=== PATIENT | female | born 1970 | race Caucasian/White ===

== ENCOUNTER 2022-08-09 10:43 | Outpatient (CLI) | payer BC, SELFPAY ==
[2022-08-09 12:23] LABS: Kit Draw Collected
== END 2022-08-09 10:44 | disposition home or self-care (01) ==
LOC: ANHGOSHLAB 10:45
PROVIDERS: PCP Family Medicine; Visit Provider Nurse Practitioner Family
DX: Z13.220 Encounter for screening for lipoid disorders (principal)
CPT/HCPCS: 36415

== ENCOUNTER 2022-08-30 02:09 | Day surgery (SDC) | payer BC, SELFPAY ==
[2022-08-16 15:10] VITALS: BMI 22.3
--- NOTE | 2022-08-30 09:30 | WPDANESEPPF ---
Anes - Initial Pre Proc Eval Procedure: Operation Date: 08/30/22 11:30 Proposed Procedures p Screening Colonoscopy - Jere Marcum MD Date/Time: 08/30/22 09:30 Surgeon: Jere Marcum MD Pre Op Diagnosis: neoplasm screening Patient Data Age: 52 Gender: F Height: 1.7 m Weight: 64.6 kg Allergies Allergy/AdvReac Type Severity Reaction Status Date / Time minocycline AdvReac Mild Other Verified 08/30/22 10:26 doxycycline AdvReac Unknown Other Verified 08/30/22 10:26 Home Medications Medication Instructions Recorded Confirmed Type Wayne's wort 300 mg capsule 300 mg PO TID 10/04/19 08/30/22 History methylcellulose (laxative) 500 mg 500 mg PO DAILY 03/22/22 08/30/22 History tablet (Fiber Therapy (methylcellulose)) vit C 250 mg-vit E 200 unit-zinc 1 cap PO DAILY 03/22/22 08/30/22 History ox 12.5 rk-tbdejn-cwkicn-zeax capsule (ICaps AREDS2) triamcinolone acetonide 0.1 % 1 applic topical BID #30 grams 08/02/22 08/30/22 Rx topical cream Patient hx anesthesia problems: none Family hx anesthesia problems: none Results Review: All pre-operative results and documents have been reviewed as part of the pre-operative evaluation. [facility] Past Medical History Medical History Bilateral ureteral reflux (~1983) Breast mass, right Chronic rhinitis Depressive disorder, not elsewhere classified Raynaud's syndrome without gangrene Surgical History Surgical History H/O breast augmentation (~2001) H/O tubal ligation (~2006) History of kidney donation History of nephrectomy (~2015) Hx of LASIK (~2011) Family History Family History Father Hypertension Mother Family history of heart disease in male family member before age 55 Other Depression Social History Social History Smoking status: Never smoker Alcohol intake: current Alcohol use details: occasional Substance use: never Substance use type: does not use Lack of Transportation: No Lack of Food: Never True Current Housing: I Have Housing Concerned About Future Housing: No Difficulty Paying Gas/Electric Bills: No Difficulty Paying for Meds: No Currently Unemployed: No Education: Bachelor's Degree Difficulty w/ Childcare or Family Care: No Living arrangements: with family Occupation/Education: occupation Gender identity (if verbalized by the patient): Female Spiritual care concerns: No Anes - Eval Final PreProcedure Day of Procedure 08/30/22 09:30 Patient weight: normal Heart: regular rate and rhythm Lungs: clear to auscultation and normal air movement Airway: Mallampati scale class II Neurological: alert and oriented Last oral intake: >/= 8 hours ASA classification: II Emergent: no Anesthetic plan: proceed Anesthesia type and monitoring: general GIVS Results Review: All pre-operative results and documents have been reviewed as part of the pre-operative evaluation. Informed Consent: The patient's anesthetic plan and its attendant risks and benefits were discussed with the patient/family/POA. Questions were solicited and answers provided to the satisfaction of the patient/family/POA.
[2022-08-30 10:28] VITALS: BP 128/80; PULSE 80; RESP 16; TEMP 36.5; O2SAT 100; BMI 21.7
[2022-08-30] MEDS: LACTATED RINGERS 1,000 ML 150 ML IV CONT (10:40)
--- NOTE | 2022-08-30 10:59 | PM.HPGS ---
History of Present Illness History of Present Illness Consent: Risks, benefits, and alternatives have been discussed and questions answered. Patient agrees to proceed with procedure. Chief complaint: neoplasm screening Narrative: Dyana Chinchilla is a 52 year old female Presents for screening colonoscopy. Patient reports that her father had colon polyps. Patient reports 10 years ago she had colonoscopy with benign polyps. Patient reports that her current weight appetite and bowel movements are normal. Patient denies abdominal pain. She has had no bleeding. Family history noncontributory. Review of Systems Review of Systems: Review of systems noncontributory. [facility] Past Medical History Medical History Bilateral ureteral reflux (~1983) Breast mass, right Chronic rhinitis Depressive disorder, not elsewhere classified Raynaud's syndrome without gangrene Surgical History Surgical History H/O breast augmentation (~2001) H/O tubal ligation (~2006) History of kidney donation History of nephrectomy (~2015) Hx of LASIK (~2011) Family History Family History Father Hypertension Mother Family history of heart disease in male family member before age 55 Other Depression Social History Social History Smoking status: Never smoker Alcohol intake: current Alcohol use details: occasional Substance use: never Substance use type: does not use Lack of Transportation: No Lack of Food: Never True Current Housing: I Have Housing Concerned About Future Housing: No Difficulty Paying Gas/Electric Bills: No Difficulty Paying for Meds: No Currently Unemployed: No Education: Bachelor's Degree Difficulty w/ Childcare or Family Care: No Living arrangements: with family Occupation/Education: occupation Gender identity (if verbalized by the patient): Female Spiritual care concerns: No Meds Home Medications and Allergies Home Medications Medication Instructions Recorded Confirmed Type Wayne's wort 300 mg capsule 300 mg PO TID 10/04/19 08/30/22 History methylcellulose (laxative) 500 mg 500 mg PO DAILY 03/22/22 08/30/22 History tablet (Fiber Therapy (methylcellulose)) vit C 250 mg-vit E 200 unit-zinc 1 cap PO DAILY 03/22/22 08/30/22 History ox 12.5 zc-zrxiyp-wwjrfn-zeax capsule (ICaps AREDS2) triamcinolone acetonide 0.1 % 1 applic topical BID #30 grams 08/02/22 08/30/22 Rx topical cream Allergies Allergy/AdvReac Type Severity Reaction Status Date / Time minocycline AdvReac Mild Other Verified 08/30/22 10:26 doxycycline AdvReac Unknown Other Verified 08/30/22 10:26 Vital Signs Vital Signs - 24 hr 08/30/22 10:28 Temperature 97.7 F Pulse Rate 80 Respiratory Rate 16 Blood Pressure 128/80 Pulse Oximetry 100 Oxygen Delivery Room Air Exam Narrative: Physical exam reveals patient be alert. Vital signs stable. HEENT exam is unremarkable. Patient is anicteric. Lungs are clear to auscultation and percussion. Heart is without murmur or extra sounds. Abdomen bowel sounds present soft nontender with no organomegaly. Digital external rectal exam normal. Assessment and Plan Assessment and plan (1) Family history of colonic polyps: Code(s): Z83.71 - Family history of colonic polyps Status: Acute Assessment and Plan: Patient's father has had colon polyps. For this reason screening colonoscopy advised now further recommendations may be given after endoscopy.
[2022-08-30 11:43] VITALS: BP 92/53; PULSE 73; RESP 17; O2SAT 100
[2022-08-30 11:53] VITALS: BP 112/77; PULSE 70; RESP 20; O2SAT 100
[2022-08-30 12:03] VITALS: BP 109/69; PULSE 66; RESP 18; O2SAT 100
== END 2022-08-30 12:08 | disposition home or self-care (01) ==
PROVIDERS: PCP Family Medicine; Visit Provider Internal Medicine Gastroenterology
PROC: 0DJD8ZZ Inspection of Lower Intestinal Tract, Via Natural or Artificial Opening Endoscopic (ICD-10-PCS; CPT 45378; principal; 2022-08-30 11:30)
DX: Z12.11 Encounter for screening for malignant neoplasm of colon (principal); K64.8 Other hemorrhoids; Z83.71 Family history of colonic polyps; Z90.5 Acquired absence of kidney
CPT/HCPCS: 45378; J2704; J7120

== ENCOUNTER 2022-11-22 15:46 | Outpatient (CLI) | payer BC, SELFPAY | END 2022-11-22 15:47 | disposition home or self-care (01) | LOC: ANHLAB 15:47 | PROVIDERS: PCP Family Medicine; Visit Provider Anesthesiology | DX: Z01.812 Encounter for preprocedural laboratory examination (principal); K43.2 Incisional hernia without obstruction or gangrene | CPT/HCPCS: 36415; 86850; 86900; 86901 ==

== ENCOUNTER → 2022-11-25 11:13 | Outpatient (CLI) | payer BC, SELFPAY ==
--- NOTE | ~2022-11-25 | MM_ITS ---
EXAMINATION: MM screening [facility] BI w ephraim HISTORY: Screening mammogram TECHNIQUE: Craniocaudal and mediolateral oblique 3-D tomosynthesis images were obtained and synthetic 2-D images were generated. CAD analysis was submitted and interpreted. COMPARISON: 01/04/2016, 06/25/2015, 11/13/2014 BREAST PARENCHYMAL COMPOSITION: The breasts are extremely dense, which lowers the sensitivity of mamm ography. FINDINGS: There is been interval explantation of the breast implants. RIGHT BREAST: No suspicious mass, calcification, or architectural distortion are identified to sugges t malignancy. There has been no suspicious interval change. LEFT BREAST: An asymmetry is present in the posterior third of the slightly inner breast 8.5 cm from the nipple on the craniocaudal view. IMPRESSION: 1. Left breast asymmetry on the craniocaudal view. 2. Additional mammographic views and possible breast ultrasound are recommended. BI-RADS Category 0: Incomplete: Needs additional imaging evaluation. Reviewed, dictated and finalized at location A. IMPRESSION: 1. Left breast asymmetry on the craniocaudal view. 2. Additional mammographic views and possible breast ultrasound are recommended . BI-RADS Category 0: Incomplete: Needs additional imaging evaluation.
== END ==
PROVIDERS: PCP Nurse Practitioner Family; Visit Provider Nurse Practitioner Family
DX: Z12.31 Encounter for screening mammogram for malignant neoplasm of breast (principal); R92.8 Other abnormal and inconclusive findings on diagnostic imaging of breast
CPT/HCPCS: 77063; 77067

== ENCOUNTER 2022-12-01 14:32 | Inpatient (IN) | payer BC, SELFPAY ==
[2022-11-21 14:24] VITALS: BMI 21.4
--- NOTE | 2022-11-21 14:50 | PC.NURSE ---
Report to the Outpatient Waiting Room, entrance under the green pavilion located off [facility], at time _1030 on date 11/30/22_. Planned Procedure Time: 1230_. Time changes happen often and if your time is changed the preop area will call you the afternoon before. - You and your visitor will be asked to self-screen and do not enter if you have any COVID symptoms. - A mask is optional within the hospital at this time. Patients may have clear liquids (water, carbonated beverages, clear teas, apple juice) until 3 hours prior to surgery with a maximum of 20 ounces. - No food from midnight until time of surgery - Infants may have breast milk until 4 hours before surgery, formula 6 hours prior to surgery. - Children will be allowed to drink immediately following surgery. If applicable, please bring a bottle or sippy cup to assist with drinking. Juice, water, soda, and popsicles are readily available. For infants on formula, please bring formula the day of surgery. Pacifiers are allowed. Take the following medications with a SIP of water the morning of surgery: _n/a DO NOT STOP ANY OF YOUR OTHER PRESCRIPTION MEDICATIONS PRIOR TO SURGERY ?EXCEPT THE FOLLOWING Medications to discontinue per physician _[place] wort, vitamin Date to take last dose_11/27/22_ Please no make-up, nail georgian, hairspray, perfume, deodorant, or body powder the day of surgery. No jewelry (including any body piercings) or valuables the day of surgery, leave them at home. Please take a shower or bath the night before, or the morning of, surgery with an antibacterial soap(hibiclens soap). Wear comfortable, loose fitting clothing. Children are encouraged to wear pajamas. - Jewelry must be removed prior to entering the operating room. Rings and piercings that are not removed may be cut off. - The hospital will not accept responsibility for valuables. - Please leave all valuables, including medications, at home the day of surgery. If you are going home after surgery, a licensed [employer] company truck driver must drive you home. - NO public transportation without another adult if you receive anesthesia. - We recommend that an adult stay with you for 24 hours following discharge. - We also recommend that you do not drive, make important decision, drink alcoholic beverages, or take any drugs that were not prescribed by your health care provider for at least 24 hours after your discharge time. For Pediatric surgeries, we recommend two adults accompany the child home. Follow any additional instructions given to you from your surgeon. If you or anyone in your household have experienced Covid symptoms in the past week, please notify your surgeon or the nurse liaison at the phone number below for possible testing. Telephone instructions given to Dyana Forteand asked if any additional questions and then verbalized understanding. Patient advised to call surgeon office or pre surgery nurse liaison [phone] if any additional questions.
[2022-11-30] VITALS (11 sets, daily range): BP systolic 93–124; BP diastolic 59–73; PULSE 50–89; RESP 12–18; TEMP 36.2–37.1; O2SAT 95–100
--- NOTE | 2022-11-30 12:11 | WPDHPUPDATE1 ---
History and Physical Update Update Date/Time: 11/30/22 12:11 History and Physical has been reviewed, including an updated exam of the patient. There are NO changes in the patient's condition. Risks, benefits, and alternatives have been discussed and questions answered. Patient agrees to proceed with procedure.
[2022-11-30] MEDS: LACTATED RINGERS 1,000 ML 30 ML IV CONT ×2 (12:30→15:54)
--- NOTE | 2022-11-30 12:37 | WPDANESEPPF ---
Anes - Initial Pre Proc Eval Procedure: Operation Date: 11/30/22 12:30 Proposed Procedures p Robotic Repair Incisional Hernia Repair - Barney Aldana MD Date/Time: 11/30/22 12:37 Surgeon: Barney Aldana MD Pre Op Diagnosis: incisional Hernia Patient Data Age: 52 Gender: F Height: 1.73 m Weight: 63.4 kg Last Vital Signs Temp 36.2 C L 11/30/22 10:46 Pulse 89 11/30/22 10:46 Resp 18 11/30/22 10:46 BP 124/71 11/30/22 10:46 Pulse Ox 100 11/30/22 10:46 O2 Del Method Room Air 11/30/22 10:46 Allergies Allergy/AdvReac Type Severity Reaction Status Date / Time minocycline AdvReac Mild Other Verified 11/30/22 11:40 doxycycline AdvReac Unknown Other Verified 11/30/22 11:40 Home Medications Medication Instructions Recorded Confirmed Type Wayne's wort 300 mg capsule 300 mg PO TID 10/04/19 11/30/22 History methylcellulose (laxative) 500 mg 500 mg PO DAILY 03/22/22 11/30/22 History tablet (Fiber Therapy (methylcellulose)) vit C 250 mg-vit E 200 unit-zinc 1 cap PO DAILY 03/22/22 11/30/22 History ox 12.5 bc-hibhib-oocpch-zeax capsule (ICaps AREDS2) triamcinolone acetonide 0.1 % 1 applic topical BID #30 grams 08/02/22 11/30/22 Rx topical cream estradiol-norethindrone acet 0.5 1 tablet PO DAILY #28 tabs 10/19/22 11/30/22 Rx mg-0.1 mg tablet (Amabelz) Patient hx anesthesia problems: none Family hx anesthesia problems: none Results Review: All pre-operative results and documents have been reviewed as part of the pre-operative evaluation. [facility] Past Medical History Medical History Bilateral ureteral reflux (~1983) Breast mass, right Chronic rhinitis Depressive disorder, not elsewhere classified Raynaud's syndrome without gangrene Surgical History Surgical History H/O breast augmentation (~2001) H/O breast surgery implants removed 08/12/2022 H/O tubal ligation (~2006) H/O ureter repair History of kidney donation History of nephrectomy (~2015) Hx of LASIK (~2011) Family History Family History Father Hypertension Mother Family history of heart disease in male family member before age 55 Unknown COPD (chronic obstructive pulmonary disease) Depression Social History Social History Smoking status: Never smoker Alcohol intake: current Alcohol use details: occasional Substance use: never Substance use type: does not use Lack of Transportation: No Lack of Food: Never True Current Housing: I Have Housing Concerned About Future Housing: No Difficulty Paying Gas/Electric Bills: No Difficulty Paying for Meds: No Currently Unemployed: No Education: Bachelor's Degree Difficulty w/ Childcare or Family Care: No Living arrangements: with family Occupation/Education: unemployed Gender identity (if verbalized by the patient): Female Sexual Orientation (if Verbalized by the Patient): Straight or Heterosexual Spiritual care concerns: No Anes - Eval Final PreProcedure Day of Procedure 11/30/22 12:37 Patient weight: normal Heart: regular rate and rhythm Lungs: clear to auscultation Airway: Mallampati scale class 1 Neurological: alert and oriented Last oral intake: >/= 8 hours ASA classification: III Emergent: no Anesthetic plan: proceed Anesthesia type and monitoring: general ETT and standard monitoring Results Review: All pre-operative results and documents have been reviewed as part of the pre-operative evaluation. Informed Consent: The patient's anesthetic plan and its attendant risks and benefits were discussed with the patient/family/POA. Questions were solicited and answers provided to the satisfaction of the patient/family/POA.
[2022-11-30] MEDS: ceFAZolin 2 GM/D5W 50 ML 2 GM/50 ML BAG IVPB (13:05)
--- NOTE | 2022-11-30 14:20 | SUR.OPER ---
OPEN PROCEDURE AT 0848
[2022-11-30] MEDS: LIDO 1%/EPINEPHRINE 1:100,000 20 ML VIAL 30 ML INFILTRATE (14:41)
--- NOTE | 2022-11-30 16:05 | W.PM.PROC2 ---
Procedure Note - Detailed Date of Procedure 11/30/22 Pre-op Diagnosis incisional Hernia with 1.5 cm defect Post-op Diagnosis Other (Incisional hernia with 8 cm defect) Procedure Performed Attempted robotic laparoscopic incisional hernia repair, open 8 cm incisional hernia repair with mesh, bilateral myofascial flap advancement 4 cm on the left, 3 cm on the right. Surgeon Barney Aldana MD Finishing Supervisor Gildardo FINCH, Gege FINCH Anesthesia General and Local (0.5% Marcaine with epinephrine) Indications Patient was a kidney donor in 2016. She had a midline incision associated with the nephrectomy. She noticed bulging in this area just above the umbilicus. She was seen in the office and found to have a supraumbilical incisional hernia judged to be about a 1.5 cm defect. She is taken to surgery now for laparoscopic robotic incisional hernia repair with mesh. Findings At robotic laparoscopy it was noted that the entire old incision was involved in the hernia. The rectus muscles were and the overall defect measured 8 x 5 cm. Robotic repair was abandoned and open repair with retro rectus mesh placement was performed. Description of Procedure Patient was taken to surgery and induced into general anesthesia. The abdomen was prepped and draped. Robotic trocars were planned for the lateral left side of the abdomen. Local anesthesia was infiltrated prior to placement of each of the trocars. A left subcostal incision was made 1st. The varies needle was introduced. CO2 was insufflated to adequate distension. A 5 mm applied Medical optical trocar was then placed. Under direct visualization, an 8 mm robotic trocar was placed in the lateral left mid abdomen. Similarly another 8 mm robotic trocar was placed in the left lower quadrant. We moved the camera and exchanged the 5 mm port for an 8 mm robotic port. The robot was brought into the field. The camera was docked. The 2 instrument arms were docked and instruments placed. The surgeon scrubbed out and went to the robotic console. There were a few anterior abdominal wall adhesions which were taken down with the scissors or cautery. The hernia defect was found. Instead of a small circular defect of 1.5 cm in diameter, the entire old nephrectomy incision was herniated. I dissected some of the peritoneum in this area to delineate the anatomy a little better and see if robotic closure with underlay mesh would be satisfactory. With the length of the hernia defect of 8 cm and the width of 5 cm, I felt this would be unsatisfactory and likely would result in recurrence. The robotic instruments and trocars were then removed. Instruments for open incisional hernia repair were brought into the field. Once we were set up for an open repair, I infiltrated additional local in the area of the previous midline scar. Incision was made in the area of the previous scar. Dissecting through the skin and some subcutaneous we then were in the peritoneal cavity as the previous dissection had removed some of the hernia sac. I palpated the edges of the hernia defect and confirmed the impression from the laparoscopy. I then enlarged the incision both cephalad and caudally such that the hernia defect was exposed at the skin and subcutaneous level. I started on the patient's left side. The posterior rectus fascia was exposed and I divided the posterior rectus fascia down to the rectus muscle medially. I then carefully dissected the posterior rectus fascia from the rectus muscle in this area as well as above and below the initial opening. The fascia easily from the rectus muscle. I dissected all the way to the lateral most extent of the rectus muscle. I then continued the dissection cephalad dividing the posterior rectus sheath on the patient's left side to a position at least 6-7 cm above the upper margin of the hernia defect. Similarly, I exposed the caudal into the incision and divided the posterior rectus f
[2022-11-30] MEDS: HYDROmorphone HCL INJ (*CRX) 1 MG/ML SYR 0.5 MG IV PUSH ×6 (16:16→17:10)
--- NOTE | 2022-11-30 17:47 | ADMGEN ---
This patient, Dyana Chinchilla, was admitted to 3 [facility] Surg Room 326-01. Report received from OLEG Rockwell. Patient/family oriented to hospital policies and general routines including ID bracelet, bed and alarms, visiting hours, pain management, procedures, bathroom and other care routines, personal items, smoking policy, room service/diet, and visiting hours. Information on how to activate the Rapid Response Team has been discussed. Patient/Family are encouraged to report perceived risks to care and to ask questions if they do not understand what they are told or what they should do.
[2022-11-30] MEDS: IBUPROFEN IV 800 MG/200 ML 800 MG/200 ML BAG 400 MG IVPB ×2 (18:02→23:32)
[2022-11-30] MEDS: diazePAM (*CRX) 5 MG TABLET PO (18:03)
[2022-11-30] MEDS: SCOPOLAMINE 1.5 MG PATCH TRANSDERM (18:07)
[2022-11-30] MEDS: LACTATED RINGERS 1,000 ML 100 ML IV CONT (18:07)
[2022-11-30] MEDS: FAMOTIDINE 20 MG/2 ML VIAL IV PUSH (21:39)
[2022-11-30] MEDS: SENNA/DOCUSATE SODIUM TABLET 2 TAB PO (21:39)
--- NOTE | ~2022-12-01 | XR_ITS ---
EXAMINATION: XR abdomen obstructive series DATE: 12/03/2022 10:28 INDICATION: Vomiting. Postop. TECHNIQUE: Upright and supine views of the abdomen were obtained. COMPARISON: None. FINDINGS: There are no dilated loops of bowel. There is a moderate volume of stool in the colon. A campoverde rgical drain overlies the left abdomen. No free intraperitoneal gas. IMPRESSION: 1. Nonobstructive bowel gas pattern. Reviewed, dictated and finalized at location A.
[2022-12-01 03:04] VITALS: BP 98/51; PULSE 54; RESP 16; TEMP 36.2; O2SAT 99
[2022-12-01] MEDS: LACTATED RINGERS 1,000 ML 100 ML IV CONT (03:57)
[2022-12-01] MEDS: IBUPROFEN IV 800 MG/200 ML 800 MG/200 ML BAG 400 MG IVPB ×2 (06:27→11:37)
[2022-12-01 06:29] LABS: Hematocrit 31.4 % (37.0-47.0); Hemoglobin 9.9 g/dL (12.0-15.0); Immature Platelet Fraction Pct 5.2 % (0.9-11.2); Mean Corpuscular HGB Conc 31.5 g/dl (32-36); Mean Corpuscular Hemoglobin 30.2 pg (26-34); Mean Corpuscular Volume 95.7 fl (80-100); Mean Platelet Volume 11.2 fl (7.4-10.4); Platelet Count Result 138 k/mm3 (150-375); Red Blood Count 3.28 M/mm3 (4.2-5.4); Red Cell Distribution Width 13.2 % (11.5-14.5); White Blood Count 10.7 K/mm3 (4.5-10.0)
[2022-12-01 06:47] LABS: Anion Gap 2 mmol/L (8-16); Blood Urea Nitrogen 14 mg/dL (7-17); Calcium 8.1 mg/dL (8.4-10.2); Carbon Dioxide 27 mmol/L (22-30); Chloride 102 mmol/L (98-107); Estimated CRCL calculation 60 ml/min; Estimated Glomerular Filt Rate 59; Glucose 106 mg/dL (65-110); Sodium 131 mmol/L (137-145)
[2022-12-01 07:30] VITALS: BP 91/66; PULSE 70; RESP 16; TEMP 36.4; O2SAT 100
[2022-12-01 08:00] VITALS: PULSE 69; O2SAT 99
[2022-12-01] MEDS: FAMOTIDINE 20 MG/2 ML VIAL IV PUSH (09:16)
[2022-12-01] MEDS: diazePAM (*CRX) 5 MG TABLET PO ×2 (09:16→17:27)
[2022-12-01] MEDS: polyethylene glycoL 3350 17 GM POWD.PACK PO (09:17)
[2022-12-01] MEDS: ENOXAPARIN 40 MG/0.4 ML SYRINGE SUB-Q (09:17)
[2022-12-01] MEDS: ACETAMINOPHEN 500 MG TABLET PO ×2 (09:20→17:30)
[2022-12-01 11:04] VITALS: BP 110/60; PULSE 72; RESP 16; TEMP 36.6; O2SAT 100
--- NOTE | 2022-12-01 11:30 | WPDANESPN ---
Anes - Prog Note Post-Op Date/Time: 12/01/22 11:30 Cardiovascular status: normal Respiratory status: normal Airway patency: baseline Mental status: baseline Post-Op hydration status: normal Vital Signs: Last Vital Signs Temp 97.9 F 12/01/22 11:04 Pulse 72 12/01/22 11:04 Resp 16 12/01/22 11:04 BP 110/60 12/01/22 11:04 Pulse Ox 100 12/01/22 11:04 O2 Del Method Room Air 11/30/22 21:29 O2 Flow Rate 8 11/30/22 16:20 Pain Score (VAS): 4 I/O: Intake & Output 11/30/22 12/01/22 12/01/22 23:59 07:59 15:59 Intake Total 500 2100 360 Output Total 100 25 Balance 400 2075 360 Laboratory Tests 12/01/22 06:03 12/01/22 06:03 12/01/22 06:03 WBC 10.7 H RBC 3.28 L Hgb 9.9 L Hct 31.4 L MCV 95.7 MCH 30.2 MCHC 31.5 L RDW 13.2 Plt Count 138 L MPV 11.2 H % Immature Plt Fraction 5.2 Sodium 131 L Potassium 4.0 Chloride 102 Carbon Dioxide 27 Anion Gap 2 L BUN 14 Creatinine 1.00 Estim Creat Clear Calc 60 Estimated GFR 59 Glucose 106 Calcium 8.1 L Post-procedural complaints: none Patient Feedback: Patient satisfied with anesthetic care.
[2022-12-01 15:04] VITALS: BP 105/55; PULSE 83; RESP 18; TEMP 37; O2SAT 100
--- NOTE | 2022-12-01 17:43 | PM.PNGS ---
Progress Note: A&P Assessment and Plan (1) Incisional hernia without mention of obstruction or gangrene: Qualifiers: Obstruction and gangrene presence: without obstruction or gangrene Qualified Code(s): K43.2 - Incisional hernia without obstruction or gangrene Code(s): K43.2 - Incisional hernia without obstruction or gangrene Status: Chronic Assessment and Plan: Doing well after retro rectus mesh repair yesterday. Has been up walking. Is been taking only IV ibuprofen for pain or Tylenol. Serosanguineous fluid per VALDEZ drain. Tolerating low-fiber diet well. Will change to oral analgesics. DC the Valium. She is doing very nicely. Recheck labs and exam tomorrow. Possibly home tomorrow if continues to improve. (2) History of kidney donation: Code(s): Z90.5 - Acquired absence of kidney Status: Chronic Assessment and Plan: Watch creatinine. Avoid NSAIDs other than occasional. Subjective Subjective Date/Time Seen: 12/01/22 17:43 Post Op day: 1 Patient reports: feels better, pain is less, tolerating a regular diet, no bowel movement and afebrile Exam Const: General: comfortable and no acute distress Orientation/consciousness: patient oriented x3 GI: Inspection: non-distended, incision (Dry and healing well), scaphoid and other (Serosanguineous fluid in VALDEZ drain) GI Palp: Yes Firmness to palpation present (GI), Yes Tenderness to palpation present (GI), No Guarding due to palpation present (GI) and No Rebound tenderness present Neuro: General: patient oriented x3 and no focal motor deficits Extrem: General: no calf tenderness and no edema Psych: Affect: normal affect Insight: Good insight present (Psych) Judgement: Good judgement present (Psych) Objective Data Vital Signs Vital Signs: Vital Signs - 24 hr 11/30/22 18:04 11/30/22 19:04 11/30/22 21:29 Temperature 36.9 C 37.1 C Pulse Rate 71 80 Respiratory Rate 16 18 Blood Pressure 113/59 L 111/60 Pulse Oximetry 100 98 98 Oxygen Delivery Room Air 11/30/22 23:04 12/01/22 03:04 12/01/22 07:30 Temperature 36.7 C 36.2 C L 36.4 C L Pulse Rate 74 54 L 70 Respiratory Rate 18 16 16 Blood Pressure 103/72 98/51 L 91/66 L Pulse Oximetry 100 99 100 Oxygen Delivery 12/01/22 11:04 12/01/22 08:00 12/01/22 15:04 Temperature 36.6 C 37.0 C Pulse Rate 72 69 83 Respiratory Rate 16 18 Blood Pressure 110/60 105/55 L Pulse Oximetry 100 99 100 Oxygen Delivery Room Air Intake/Output Intake/Output: Intake & Output 11/28/22 11/29/22 11/30/22 12/01/22 23:59 23:59 23:59 23:59 Intake Total 550 2860 Output Total 100 25 Balance 450 2835 Meds/Results Medications: Active Medications Generic Name Dose Route Start Last Admin Trade Name Freq PRN Reason Stop Dose Admin Acetaminophen 500 mg 11/30/22 17:19 12/01/22 17:30 Acetaminophen 500 Mg Tablet PO 500 mg Q6H PRN Administration Mild Pain (1-3) or Fever Hydrocodone Bitart/Acetaminophen 1 tab 12/01/22 17:40 Hydrocodone/Acetaminophen (*Crx) 5-325 Mg Tablet PO Q4H PRN Pain Rated 4-6 Enoxaparin Sodium 40 mg 12/01/22 09:00 12/01/22 09:17 Enoxaparin 40 Mg/0.4 Ml Syringe SUB-Q 40 mg DAILY ROSANNE Administration Ibuprofen 800 mg in 200 mls @ 400 mls/hr 12/01/22 17:40 Caldolor 800 Mg/200 Ml IVPB Q6H PRN Pain Rated 1-3 Miscellaneous Information 1 each 12/01/22 00:01 12/01/22 17:29 Med Rec Order Clarification XX 12/31/22 00:00 Not Given [facility] Morphine Sulfate 2 mg 11/30/22 17:19 Morphine Sulfate (*Crx) 2 Mg/Ml Inj IV PUSH Q2H PRN Pain Rated 4-6 Morphine Sulfate 4 mg 11/30/22 17:19 Morphine Sulfate (*Crx) 4 Mg/Ml Inj IV PUSH Q2H PRN Pain Rated 7-10 Naloxone HCl 0.1 mg 11/30/22 17:19 Naloxone Hcl 0.4 Mg/Ml Vial IV PUSH Q2M PRN Opiate Reversal Non-Formulary Medication 1 tablet 12/01/22 09:00 Estradiol-Norethindrone Acet [[place]
[2022-12-01 20:33] VITALS: BP 112/65; PULSE 71; RESP 16; TEMP 36.1; O2SAT 100
[2022-12-01] MEDS: SENNA/DOCUSATE SODIUM TABLET 2 TAB PO (20:55)
[2022-12-01] MEDS: HYDROcodone/acetaminophen (*CRX) 5-325 MG TABLET 1 TAB PO (20:55)
[2022-12-02 05:15] VITALS: BP 121/79; PULSE 85; RESP 16; TEMP 36.4; O2SAT 99
[2022-12-02 06:19] LABS: Hematocrit 32.3 % (37.0-47.0); Hemoglobin 10.4 g/dL (12.0-15.0); Immature Platelet Fraction Pct 4.5 % (0.9-11.2); Mean Corpuscular HGB Conc 32.2 g/dl (32-36); Mean Corpuscular Hemoglobin 30.8 pg (26-34); Mean Corpuscular Volume 95.6 fl (80-100); Mean Platelet Volume 11.5 fl (7.4-10.4); Platelet Count Result 115 k/mm3 (150-375); Red Blood Count 3.38 M/mm3 (4.2-5.4); Red Cell Distribution Width 13.3 % (11.5-14.5); White Blood Count 6.8 K/mm3 (4.5-10.0)
[2022-12-02 06:25] LABS: Anion Gap 3 mmol/L (8-16); Blood Urea Nitrogen 11 mg/dL (7-17); Carbon Dioxide 30 mmol/L (22-30); Chloride 105 mmol/L (98-107); Estimated CRCL calculation 54 ml/min; Estimated Glomerular Filt Rate 53; Glucose 81 mg/dL (65-110); Potassium 3.7 mmol/L (3.4-5.0); Sodium 138 mmol/L (137-145)
[2022-12-02 09:27] VITALS: BMI 21.2
[2022-12-02] MEDS: HYDROcodone/acetaminophen (*CRX) 10-325 MG TABLET 1 TAB PO ×3 (09:27→21:16)
[2022-12-02] MEDS: ENOXAPARIN 40 MG/0.4 ML SYRINGE SUB-Q (09:28)
[2022-12-02] MEDS: polyethylene glycoL 3350 17 GM POWD.PACK PO (09:29)
[2022-12-02 14:00] VITALS: BP 114/63; PULSE 60; RESP 16; TEMP 36.9; O2SAT 100
--- NOTE | 2022-12-02 18:26 | PC.NURSE ---
Pt continues to report pain today. Pt has been up ambulating in the halls and tolerating well. Pt has been treated with Ingram for pain. Pt likely to discharge tomorrow per pt report. Pt dressing was dry and intact. Pt has right VALDEZ drain that is patent and draining well. Will continue to monitor pt.
[2022-12-02] MEDS: SENNA/DOCUSATE SODIUM TABLET 2 TAB PO (21:16)
[2022-12-02 22:00] VITALS: BP 117/73; PULSE 81; RESP 14; TEMP 36.6; O2SAT 100
[2022-12-03] MEDS: HYDROcodone/acetaminophen (*CRX) 5-325 MG TABLET 1 TAB PO ×3 (04:28→15:17)
[2022-12-03 05:38] VITALS: BP 106/71; PULSE 66; RESP 14; TEMP 36.3; O2SAT 99
[2022-12-03] MEDS: ONDANSETRON INJ 4 MG/2 ML VIAL IV PUSH (09:12)
[2022-12-03] MEDS: ENOXAPARIN 40 MG/0.4 ML SYRINGE SUB-Q (09:15)
[2022-12-03] MEDS: polyethylene glycoL 3350 17 GM POWD.PACK PO (09:18)
[2022-12-03 10:25] LABS: Hematocrit 33.5 % (37.0-47.0); Hemoglobin 10.5 g/dL (12.0-15.0); Immature Platelet Fraction Pct 4.6 % (0.9-11.2); Mean Corpuscular HGB Conc 31.3 g/dl (32-36); Mean Corpuscular Hemoglobin 30.6 pg (26-34); Mean Corpuscular Volume 97.7 fl (80-100); Mean Platelet Volume 10.9 fl (7.4-10.4); Platelet Count Result 132 k/mm3 (150-375); Red Blood Count 3.43 M/mm3 (4.2-5.4); Red Cell Distribution Width 13.2 % (11.5-14.5); White Blood Count 6.9 K/mm3 (4.5-10.0)
[2022-12-03 10:30] LABS: Potassium 3.6 mmol/L (3.4-5.0)
[2022-12-03 11:00] LABS: Anion Gap 2 mmol/L (8-16); Blood Urea Nitrogen 10 mg/dL (7-17); Calcium 8.3 mg/dL (8.4-10.2); Carbon Dioxide 30 mmol/L (22-30); Chloride 102 mmol/L (98-107); Estimated CRCL calculation 66 ml/min; Estimated Glomerular Filt Rate > 60; Glucose 104 mg/dL (65-110); Sodium 134 mmol/L (137-145)
[2022-12-03 14:17] VITALS: BP 104/60; PULSE 74; RESP 14; TEMP 36.7; O2SAT 99
--- NOTE | 2022-12-03 15:55 | PM.DS ---
DS: Admitting Diagnosis Discharge Date 12/03/2022 Admitting Diagnosis Incisional hernia History of donor nephrectomy DS: Discharge Diagnosis Discharge Diagnosis (1) Incisional hernia without mention of obstruction or gangrene: Qualifiers: Obstruction and gangrene presence: without obstruction or gangrene Qualified Code(s): K43.2 - Incisional hernia without obstruction or gangrene Code(s): K43.2 - Incisional hernia without obstruction or gangrene Status: Chronic (2) History of kidney donation: Code(s): Z90.5 - Acquired absence of kidney Status: Chronic DS: Summary Hospital Course Hospital Course: Patient was seen in the office preoperatively and thought to have a small 1.5 cm incisional hernia just above her umbilicus. The hernia was in the area of a donor nephrectomy. She was taken to surgery on 11/30/2022 for robotic laparoscopic repair. At the time of surgery, it was noted that this was in fact a much larger hernia involving the entire area of the previous nephrectomy incision. The defect was in fact 8 x 4 cm. The robotic approach was abandoned and an open retro rectus repair with mesh and bilateral myofascial flap advancement was performed instead. A retro rectus drain was placed during surgery. Patient did well after the surgery. Her diet was slowly advanced to regular. She initially required IV analgesics but eventually was comfortable with oral analgesics. She has been on MiraLax and Senokot each day since surgery but has still not had a bowel movement. She had an episode of emesis this morning but following this has not had any more nausea and in fact has eaten without difficulty. She is doing well and is discharged at this time. Her retro rectus VALDEZ drain will remain in place and she will follow up with me in 2 days in the office for recheck and probable drain removal. Status at Discharge Functional status at discharge: independent ambulation Overall status at discharge: patient is progressing back to baseline Time Spent with Patient Time attestation: Total time spent providing and/or coordinating discharge services: Time spent: Less than 30 minutes Exam Const: General: comfortable, no acute distress, alert, awake and thin Orientation/consciousness: patient oriented x3 GI: Inspection: non-distended, incision (Dry and healing well) and other (VALDEZ output mostly serous) GI Palp: Yes Soft to palpation, Yes Tenderness to palpation present (GI) (Mild appropriate incisional tenderness), No Guarding due to palpation present (GI) and No Rebound tenderness present Auscultation: normal bowel sounds and normoactive bowel sounds Neuro: General: patient oriented x3 and no focal motor deficits Extrem: General: no calf tenderness and no edema Psych: Affect: normal affect Insight: Good insight present (Psych) Judgement: Good judgement present (Psych) DS: Data Data Completed and Pending Labs on day of discharge: Labs from last 24 hours 12/03/22 10:05 WBC 6.9 RBC 3.43 L Hgb 10.5 L Hct 33.5 L MCV 97.7 MCH 30.6 MCHC 31.3 L RDW 13.2 Plt Count 132 L MPV 10.9 H % Immature Plt Fraction 4.6 Sodium 134 L Potassium 3.6 Chloride 102 Carbon Dioxide 30 Anion Gap 2 L BUN 10 Creatinine 0.90 Estim Creat Clear Calc 66 Estimated GFR > 60 Glucose 104 Calcium 8.3 L Imaging Attestation: I personally reviewed and interpreted this imaging study as follows: (Obstructive series) My impression: No evidence of bowel obstruction or ileus Radiologist's impression: Same Discharge Plan Discharge Attending physician on discharge: Barney Aldana Discharging Clinician: Barney Aldana Anticipated Discharge Date/Time: 12/03/22 16:04 Patient Disposition: Home, Self-Care Activity: no straining Diet: regular Wound Care Instructions: remove dressing to shower and incision open to air Discharge Instructions: Remove the Scopolamine patch that was place
== END 2022-12-03 16:40 | disposition home or self-care (01) | DRG 355 ==
LOC: ANHSURGERY 14:37 → ANH3MEDSUR 14:37
PROVIDERS: Admitting Provider Surgery; PCP Nurse Practitioner Family; Visit Provider Surgery
PROC: 0WUF0JZ Supplement Abdominal Wall with Synthetic Substitute, Open Approach (ICD-10-PCS; principal; 2022-11-30 12:30)
DX: K43.2 Incisional hernia without obstruction or gangrene (principal); I73.00 Raynaud's syndrome without gangrene; F32.A Depression, unspecified; Z90.5 Acquired absence of kidney; Z52.4 Kidney donor; Z53.31 Laparoscopic surgical procedure converted to open procedure
CPT/HCPCS: 36415; 74019; 80048; 85027; 85055; A9270; C1781; J0690; J1100; J1170; J1650; J1741; J1885; J2250; J2405; J2704; J3010; J7030; J7120

== ENCOUNTER → 2022-12-16 08:52 | Outpatient (CLI) | payer BC, SELFPAY ==
--- NOTE | ~2022-12-16 | MM_ITS ---
EXAMINATION: MM diagnostic reinaldo LT w ephraim HISTORY: Left breast asymmetry on screening mammogram TECHNIQUE: Additional 3-D tomosynthesis images of the left breast were performed and synthetic 2-D im ages were generated. CAD analysis was submitted and interpreted. COMPARISON: 11/25/2022, 11/13/2014, 04/29/2014 FINDINGS: There is a return to baseline fibroglandular appearance with spot compression of the left b reast in the area questioned on screening mammogram. IMPRESSION: 1. No mammographic evidence of malignancy. 2. Recommend routine screening mammography in one year. BI-RADS Category 1: Negative Reviewed, dictated and finalized at location B.
== END ==
PROVIDERS: PCP Nurse Practitioner Family; Visit Provider Nurse Practitioner Family
DX: N64.89 Other specified disorders of breast (principal)
CPT/HCPCS: 77061; 77065; G0279

== ENCOUNTER 2023-03-08 09:48 | Emergency (ER) | payer BC, SELFPAY ==
[2023-03-08 09:57] VITALS: BP 108/72; PULSE 91; RESP 18; TEMP 37; O2SAT 100
--- NOTE | 2023-03-08 10:06 | ED.URI ---
HPI - URI/Sore Throat General Chief Complaint: Upper Respiratory Infection Stated Complaint: Laryngitis Time Seen by Provider: 03/08/23 10:17 Source: patient and RN notes reviewed Mode of arrival: ambulatory Limitations: no limitations History of Present Illness HPI Narrative: 52-year-old female presents with concern for hoarse voice, cough, sore throat, sinus congestion and drainage for about 3 weeks. She reports she had COVID beginning of the symptoms. She reports she has been using cough drops. She denies any fevers, aches, chills, sweats MD elicited complaint: cough Related Data Home Medications Medication Instructions Recorded Confirmed [place]'s wort 300 mg capsule 300 mg PO TID 10/04/19 03/08/23 vit C 250 mg-vit E 200 unit-zinc 1 cap PO DAILY 03/22/22 03/08/23 ox 12.5 [id number] capsule (ICaps AREDS2) Allergies Allergy/AdvReac Type Severity Reaction Status Date / Time minocycline AdvReac Mild Other Verified 03/08/23 10:13 doxycycline AdvReac Unknown Other Verified 03/08/23 10:13 Review of Systems Review of Systems: CONSTITUTIONAL: Denies malaise, chills, sweats, or fever. EYES: Denies visual changes, redness, or discharge. ENT: Reports rhinorrhea, congestion, hoarse voice and sore throat. CARDIOVASCULAR: Denies chest pain, palpitations, or edema. RESPIRATORY: Reports cough. Denies dyspnea. GASTROINTESTINAL: Denies abdominal pain, nausea, vomiting, diarrhea SKIN: Denies rash or itching. MUSCULOSKELETAL: Denies myalgia. NEUROLOGIC: Denies headache. All systems reviewed & are unremarkable except as noted in HPI and below PMFSH Past Medical History Medical History Bilateral ureteral reflux (~1983) Breast mass, right Chronic rhinitis Depressive disorder, not elsewhere classified Raynaud's syndrome without gangrene Surgical History Surgical History H/O breast augmentation (~2001) H/O breast surgery implants removed 08/12/2022 H/O tubal ligation (~2006) H/O ureter repair History of incisional hernia repair 11/30/22 Attempted robotic laparoscopic incisional hernia repair, open 8 cm incisional hernia repair with mesh, bilateral myofascial flap advancement 4 cm on the left, 3 cm on the right. History of kidney donation History of nephrectomy (~2015) Hx of LASIK (~2011) Family History Family History Father Hypertension Mother Family history of heart disease in male family member before age 55 Unknown COPD (chronic obstructive pulmonary disease) Depression Social History Social History Smoking status: Never smoker Alcohol intake: current Alcohol use details: occasional Substance use: never Substance use type: does not use Lack of Transportation: No Lack of Food: Never True Current Housing: I Have Housing Concerned About Future Housing: No Difficulty Paying Gas/Electric Bills: No Difficulty Paying for Meds: No Currently Unemployed: No Education: Bachelor's Degree Difficulty w/ Childcare or Family Care: No Living arrangements: with family Occupation/Education: unemployed Gender identity (if verbalized by the patient): Female Sexual Orientation (if Verbalized by the Patient): Straight or Heterosexual Spiritual care concerns: No Comments At time of signature, agree with nursing past medical, surgical, social and family history. There is no relevant family history pertinent to the presenting complaint Exam Narrative: GENERAL: Well-appearing, well-nourished, and in no acute distress. HEAD: Normocephalic EYES: PERRLA, conjunctivae clear ENT: Nares clear, turbinates edematous and erythematous. Mucous membranes moist. TM pearly awad with dull light reflex bilaterally; no tragal tenderness. Oropharynx erythem
== END 2023-03-08 10:34 | disposition home or self-care (01) ==
PROVIDERS: Emergency Provider Nurse Practitioner; PCP Nurse Practitioner Family
DX: J40 Bronchitis, not specified as acute or chronic (principal)
CPT/HCPCS: 99213; G0463

== ENCOUNTER 2023-04-26 01:41 | Day surgery (SDC) | payer BC, SELFPAY ==
[2023-04-18 09:28] VITALS: BMI 21.4
--- NOTE | 2023-04-18 09:35 | PC.NURSE ---
Report to the Outpatient Waiting Room, entrance under the green pavilion located off [facility], at time _0600__ on date _04/26/23. Planned Procedure Time: __0730_. Time changes happen often and if your time is changed the preop area will call you the afternoon before. - You and your visitor will be asked to self-screen and do not enter if you have any COVID symptoms. - A mask is optional within the hospital at this time. Patients may have clear liquids (water, carbonated beverages, clear teas, apple juice) until 3 hours prior to surgery with a maximum of 20 ounces. - No food from midnight until time of surgery - Infants may have breast milk until 4 hours before surgery, infant formula 6 hours prior to surgery. - Children will be allowed to drink immediately following surgery. If applicable, please bring a bottle or sippy cup to assist with drinking. Juice, water, soda, and popsicles are readily available. For infants on formula, please bring formula the day of surgery. Pacifiers are allowed. Take the following medications with a SIP of water the morning of surgery: NONE DO NOT STOP ANY OF YOUR OTHER PRESCRIPTION MEDICATIONS PRIOR TO SURGERY ?EXCEPT THE FOLLOWING Medications to discontinue per physician SUPPLIMENT Date to take last dose 04/23/23 Please no make-up, nail latvian, hairspray, perfume, deodorant, or body powder the day of surgery. No jewelry (including any body piercings) or valuables the day of surgery, leave them at home. Please take a shower or bath the night before, or the morning of, surgery with an antibacterial soap. Wear comfortable, loose fitting clothing. Children are encouraged to wear pajamas. - Jewelry must be removed prior to entering the operating room. Rings and piercings that are not removed may be cut off. - The hospital will not accept responsibility for valuables. - Please leave all valuables, including medications, at home the day of surgery. If you are going home after surgery, a licensed driver recruiter must drive you home. - NO public transportation without another adult if you receive anesthesia. - We recommend that an adult stay with you for 24 hours following discharge. - We also recommend that you do not drive, make important decision, drink alcoholic beverages, or take any drugs that were not prescribed by your health care provider for at least 24 hours after your discharge time. For Pediatric surgeries, we recommend two adults accompany the child home. Follow any additional instructions given to you from your surgeon, PT STATES SHE RECEIVED PREP INSTRUCTIONS FROM THE OFFICE. If you or anyone in your household have experienced Covid symptoms in the past week, please notify your surgeon or the nurse liaison at the phone number below for possible testing. Telephone instructions given to _PATIENT__and asked if any additional questions and then verbalized understanding. Patient advised to call surgeon office or pre surgery nurse liaison [phone] if any additional questions.
[2023-04-26] MEDS: LACTATED RINGERS 1,000 ML 30 ML IV CONT (06:30)
--- NOTE | 2023-04-26 06:47 | WPDANESEPPF ---
Anes - Initial Pre Proc Eval Procedure: Operation Date: 04/26/23 07:30 Proposed Procedures p Rubber Banding Ligation of Internal Hemorrhoids - Barney Aldana MD Date/Time: 04/26/23 06:47 Surgeon: Barney Aldana MD Pre Op Diagnosis: internal hemorrhoids with complication,prolapse Patient Data Age: 52 Gender: F Height: 1.73 m Weight: 64 kg Allergies Allergy/AdvReac Type Severity Reaction Status Date / Time minocycline AdvReac Mild Other Verified 04/18/23 09:25 doxycycline AdvReac Unknown Other Verified 04/18/23 09:25 Home Medications Medication Instructions Recorded Confirmed Type [place]'s wort 300 mg capsule 300 mg PO TID 10/04/19 04/18/23 History triamcinolone acetonide 0.1 % 1 applic topical BID PRN Itching 04/18/23 04/18/23 History topical cream estradiol-norethindrone acet 0.5 1 tablet PO HS #84 tabs 04/24/23 Rx mg-0.1 mg tablet (Amabelz) Patient hx anesthesia problems: none Family hx anesthesia problems: none Results Review: All pre-operative results and documents have been reviewed as part of the pre-operative evaluation. [facility] Past Medical History Medical History Bilateral ureteral reflux (~1983) Breast mass, right Chronic rhinitis Depressive disorder, not elsewhere classified Raynaud's syndrome without gangrene Surgical History Surgical History H/O breast augmentation (~2001) H/O breast surgery implants removed 08/12/2022 H/O tubal ligation (~2006) H/O ureter repair History of incisional hernia repair 11/30/22 Attempted robotic laparoscopic incisional hernia repair, open 8 cm incisional hernia repair with mesh, bilateral myofascial flap advancement 4 cm on the left, 3 cm on the right. History of kidney donation History of nephrectomy (~2015) Hx of LASIK (~2011) Family History Family History Father Hypertension Mother Family history of heart disease in male family member before age 55 Unknown COPD (chronic obstructive pulmonary disease) Depression Social History Social History Smoking status: Never smoker Alcohol intake: current Drinks per week: 1 Alcohol use details: occasional Substance use: never Substance use type: does not use Lack of Transportation: No Lack of Food: Never True Current Housing: I Have Housing Concerned About Future Housing: No Difficulty Paying Gas/Electric Bills: No Difficulty Paying for Meds: No Currently Unemployed: No Education: Bachelor's Degree Difficulty w/ Childcare or Family Care: No Living arrangements: with family Occupation/Education: unemployed Gender identity (if verbalized by the patient): Female Sexual Orientation (if Verbalized by the Patient): Straight or Heterosexual Spiritual care concerns: No Anes - Eval Final PreProcedure Day of Procedure 04/26/23 06:47 Patient weight: normal Heart: regular rate and rhythm Lungs: clear to auscultation Airway: Mallampati scale class 1 Neurological: alert and oriented Last oral intake: >/= 8 hours ASA classification: II Emergent: no Anesthetic plan: proceed Anesthesia type and monitoring: general GIVS and standard monitoring Results Review: All pre-operative results and documents have been reviewed as part of the pre-operative evaluation. Informed Consent: The patient's anesthetic plan and its attendant risks and benefits were discussed with the patient/family/POA. Questions were solicited and answers provided to the satisfaction of the patient/family/POA.
[2023-04-26] MEDS: ACETAMINOPHEN 500 MG TABLET 1000 MG PO (06:53)
[2023-04-26] MEDS: KETOROLAC 15 MG/ML VIAL (*BKC) IV PUSH (06:54)
[2023-04-26 07:00] VITALS: BP 131/78; PULSE 79; RESP 16; TEMP 37.3; O2SAT 99
--- NOTE | 2023-04-26 07:22 | PM.SD2 ---
Same Day Admit/Disch: HPI History of Present Illness Chief complaint: internal hemorrhoids with complication,prolapse Narrative: Dyana Chinchilla is a 52 year old female with longstanding internal hemorrhoids that prolapse and become very uncomfortable. She is taken to surgery now for rubber-band ligation of internal hemorrhoids PMFSH Past Medical History Medical History Bilateral ureteral reflux (~1983) Breast mass, right Chronic rhinitis Depressive disorder, not elsewhere classified Raynaud's syndrome without gangrene Surgical History Surgical History H/O breast augmentation (~2001) H/O breast surgery implants removed 08/12/2022 H/O tubal ligation (~2006) H/O ureter repair History of incisional hernia repair 11/30/22 Attempted robotic laparoscopic incisional hernia repair, open 8 cm incisional hernia repair with mesh, bilateral myofascial flap advancement 4 cm on the left, 3 cm on the right. History of kidney donation History of nephrectomy (~2015) Hx of LASIK (~2011) Family History Family History Father Hypertension Mother Family history of heart disease in male family member before age 55 Unknown COPD (chronic obstructive pulmonary disease) Depression Social History Social History Smoking status: Never smoker Alcohol intake: current Drinks per week: 1 Alcohol use details: occasional Substance use: never Substance use type: does not use Lack of Transportation: No Lack of Food: Never True Current Housing: I Have Housing Concerned About Future Housing: No Difficulty Paying Gas/Electric Bills: No Difficulty Paying for Meds: No Currently Unemployed: No Education: Bachelor's Degree Difficulty w/ Childcare or Family Care: No Living arrangements: with family Occupation/Education: unemployed Gender identity (if verbalized by the patient): Female Sexual Orientation (if Verbalized by the Patient): Straight or Heterosexual Spiritual care concerns: No Same Day Admit/Disch: Med Pre-admit Medications Home Medications Medication Instructions Recorded Confirmed Type [place]'s wort 300 mg capsule 300 mg PO TID 10/04/19 04/26/23 History triamcinolone acetonide 0.1 % 1 applic topical BID PRN Itching 04/18/23 04/26/23 History topical cream estradiol-norethindrone acet 0.5 1 tablet PO HS #84 tabs 04/24/23 04/26/23 Rx mg-0.1 mg tablet (Amabelz) ketorolac 10 mg tablet 10 mg PO Q6H 4 days #10 tabs 04/26/23 Rx oxycodone-acetaminophen 5 mg-325 0.5 - 1 tablet PO Q6H PRN pain #10 04/26/23 Rx mg tablet tabs Review of Systems Review of Systems All systems reviewed & are unremarkable except as noted in HPI and below (HPI) Exam Const: General: comfortable, no acute distress, alert and awake HENMT: Head: normocephalic and atraumatic Mouth: Yes Normal oral and palatal mucosa present Eyes: Conjunctivae: conjunctivae normal Pupils: Equal, round and reactive pupils present EOM: EOMs intact bilaterally Neck: Neck: normal visual inspection, no lymphadenopathy and nontender Resp: Effort & Inspection: normal respiratory effort Auscultation: clear to auscultation bilaterally Cardio: Rate: regular rate Rhythm: regular rhythm Heart sounds: no gallops, no murmurs and no rubs GI: Inspection: non-distended, scaphoid and scar GI Palp: Yes Soft to palpation, No Tenderness to palpation present (GI), No Hepatomegaly present and No Splenomegaly present Rectal Exam: visual inspection normal, normal sphincter tone, hemorrhoids (Bulky internal hemorrhoidal tissue) and tenderness Skin: Lesions: no lesions Rashes: no rashes Neuro: General: no focal motor deficits and CN's II-XI intact bilaterally Cranial nerves: Yes Equal, round and reactive pupils present, Yes Bilaterally
--- NOTE | 2023-04-26 07:24 | WPDHPUPDATE1 ---
History and Physical Update Update Date/Time: 04/26/23 07:24 History and Physical has been reviewed, including an updated exam of the patient. There are NO changes in the patient's condition. Risks, benefits, and alternatives have been discussed and questions answered. Patient agrees to proceed with procedure.
[2023-04-26] MEDS: BUPIVACAINE/EPINEPHRINE 0.5% 50 ML VIAL 10 ML INFILTRATE (07:35)
[2023-04-26] MEDS: ceFAZolin 2 GM/D5W 50 ML 2 GM/50 ML BAG IVPB (07:35)
[2023-04-26 08:02] VITALS: BP 91/50; PULSE 67; RESP 16; O2SAT 100
--- NOTE | 2023-04-26 08:18 | P.OP_ITS ---
Procedure Note - Detailed Date of Procedure 04/26/23 Pre-op Diagnosis internal hemorrhoids with complication,prolapse Post-op Diagnosis Same Procedure Performed Rubber-band ligation internal hemorrhoids Surgeon Barney Aldana MD [facility]rasco, [facility] Anesthesia MAC and Local Indications Patient has for long time had hemorrhoids that would prolapse with bowel movement and be very uncomfortable. She has tried stool softeners with no results. She is taken to surgery now for rubber-band ligation internal hemorrhoids. Findings Largest internal hemorrhoid was at the right posterior position. She also had smaller internal hemorrhoids at the right anterior and left lateral positions Description of Procedure Patient was taken to surgery and IV sedation was introduced. She was placed in prone danica-knife position. The buttocks were taped apart. Prep and drape was carried out. The anal canal was reviewed using Rachid-Noe anoscope. Findings were as above. The right posterior internal hemorrhoid was rubber-band ligated. The other to, smaller, internal hemorrhoids were then rubber-band ligated. There was no bleeding. I infiltrated some local anesthetic in the area of each of the hemorrhoids and ligature. The rectum was then dressed with Xeroform gauze fluffs and Promise panties. Patient was returned to a supine position, awakened and taken to outpatient surgery in good condition. Sponge needle counts were correct x2. Estimated Blood Loss 0 Drains No Packing No Pathology None sent Complications No immediate complications Condition Stable Disposition Same day [facility] Billing Surgery - Charge Forward: Surgery Billing (Rubber-band ligation 3 sites internal hemorrhoids.)
[2023-04-26 08:30] VITALS: BP 99/53; PULSE 71; RESP 16; O2SAT 100
[2023-04-26 08:55] VITALS: BP 109/65; PULSE 61; RESP 18
== END 2023-04-26 09:01 | disposition home or self-care (01) ==
PROVIDERS: PCP Nurse Practitioner Family; Visit Provider Surgery
PROC: (CPT 46221; principal; 2023-04-26 07:30)
DX: K64.8 Other hemorrhoids (principal)
CPT/HCPCS: 46221; A9270; J0690; J1100; J1885; J2250; J2405; J2704; J3010; J7120

== ENCOUNTER 2024-10-16 14:36 | Outpatient (CLI) | payer BC, SELFPAY ==
[2024-10-16 18:46] LABS: Hematocrit 37.7 % (37.0-47.0); Hemoglobin 12.3 g/dL (12.0-15.0); Immature Granulocyte Percent A 0.2 % (0-0.5); Lymphocytes Absolute Auto 1.77 K/mm3 (0.9-3.2); Mean Corpuscular HGB Conc 32.6 g/dl (32-36); Mean Corpuscular Hemoglobin 30.8 pg (26-34); Mean Corpuscular Volume 94.3 fl (80-100); Nucleated Red Blood Cells Absolute Auto 0.000 K/mm3 (0.0-0.012); Nucleated Red Blood Cells Perc 0.0 % (0.0-0.2); Platelet Count Result 192 k/mm3 (150-375); Red Blood Count 4.00 M/mm3 (4.2-5.4); White Blood Count 6.4 K/mm3 (4.5-10.0)
[2024-10-16 19:01] LABS: Alanine Aminotransferase 27 U/L (6-35); Albumin Level 4.2 g/dL (3.5-5.1); Alkaline Phosphatase 55 U/L (38-126); Anion Gap 8 mmol/L (4-12); Aspartate Amino Transferase 47 U/L (14-36); Bilirubin,Total 0.4 mg/dL (0.2-1.3); Blood Urea Nitrogen 16 mg/dL (7-17); Calcium 9.2 mg/dL (8.4-10.2); Carbon Dioxide 30 mmol/L (22-30); Chloride 102 mmol/L (98-107); Cholesterol 190 mg/dL (0-200); Estimated Glomerular Filt Rate 50; Glucose 123 mg/dL (65-110); HDL Direct 65 mg/dL; Potassium 4.1 mmol/L (3.4-5.0); Sodium 140 mmol/L (137-145); Total Protein 7.9 g/dL (6.3-8.2); Triglycerides 114 mg/dL (<150)
[2024-10-16 19:10] LABS: Parathyroid Intact 33.6 pg/mL (14.5-75.2)
[2024-10-16 19:39] LABS: Thyroid Stimulating Hormone 1.060 uIU/mL (0.465-4.680)
== END 2024-10-16 14:37 | disposition home or self-care (01) ==
LOC: ANHGOSHLAB 14:37
PROVIDERS: PCP Nurse Practitioner Family; Visit Provider Nurse Practitioner Family
DX: Z13.29 Encounter for screening for other suspected endocrine disorder (principal); Z13.220 Encounter for screening for lipoid disorders; E55.9 Vitamin D deficiency, unspecified; Z00.00 Encounter for general adult medical examination without abnormal findings; Z79.899 Other long term (current) drug therapy
CPT/HCPCS: 36415; 80053; 80061; 82306; 83970; 84443; 85025

== ENCOUNTER 2025-02-21 11:42 | Outpatient (CLI) | payer BC, SELFPAY ==
--- NOTE | ~2025-02-21 | MM_ITS ---
EXAMINATION: MM screening reinaldo BI w ephraim HISTORY: Screening TECHNIQUE: Craniocaudal and mediolateral oblique 3-D tomosynthesis images were obtained and synthetic 2-D images were generated. CAD analysis was submitted and interpreted. COMPARISON: Comparison to multiple prior studies sequentially, with oldest reviewed study dated 06/25/2015. BREAST PARENCHYMAL COMPOSITION: Dense: The breasts are extremely dense, which lowers the sensitivity of mammography. FINDINGS: There is no evidence of suspicious mass, calcification, or architectural distortion to suggest malignancy in either breast. There has been no suspicious interval change. IMPRESSION: 1. No mammographic evidence of malignancy. 2. Recommend routine screening mammography in one year. BI-RADS Category 1: Negative Reviewed, dictated and finalized at location [facility]
== END 2025-02-21 11:43 | disposition home or self-care (01) ==
LOC: MICIMG 11:42
PROVIDERS: PCP Family Medicine; Visit Provider Family Medicine
DX: Z12.31 Encounter for screening mammogram for malignant neoplasm of breast (principal)
CPT/HCPCS: 77063; 77067

== ENCOUNTER 2025-03-28 08:38 | Outpatient (CLI) | payer BC, SELFPAY ==
[2025-03-29 07:09] LABS: Measles Antibodies, IgG 276.0 AU/mL (Immune >16.4); Rubella Antibodies, IgG 5.38 index (Immune >0.99)
== END 2025-03-28 08:39 | disposition home or self-care (01) ==
LOC: ANHGOSHLAB 08:38
PROVIDERS: PCP Nurse Practitioner Family; Visit Provider Nurse Practitioner Family
DX: Z11.59 Encounter for screening for other viral diseases (principal)
CPT/HCPCS: 86735; 86762; 86765